=== PATIENT | male | born 1955 | race Caucasian/White ===

== ENCOUNTER → 2016-06-24 | Outpatient (CLI) | payer OTHER | LOC: RAD 18:15 | PROVIDERS: ATTEND Physician Assistant | DX: M54.16 Radiculopathy, lumbar region (principal) | CPT/HCPCS: 72148 ==

== ENCOUNTER → 2017-10-17 | Outpatient (CLI) | payer OTHER ==
--- NOTE | 2017-10-18 07:30 | RADIOLOGY REPORT (SQ) ---
EXAM DESCRIPTION: MRI LUMBAR SPINE COMBO COMPLETED DATE/TIME: 10/17/2017 7:13 pm REASON FOR STUDY: M54.16 RADICULOPATHY, LUMBAR REGION M54.16 RADICULOPATHY, LUMBAR REGION COMPARISON: MRI lumbar spine 06/24/2016, 09/22/2015 TECHNIQUE: Sagittal and Axial imaging includes T1, T1 post gadolinium, T2, STIR and gradient echo se quences. Coronal T2/HASTE imaging. CONTRAST TYPE AND DOSE: 20 mL Prohance. RENAL FUNCTION: GFR > 60. LIMITATIONS: None. FINDINGS: VISUALIZED UPPER ABDOMEN: Atrophic right kidney SEGMENTATION: No transitional anatomy. The lowest well-developed disc space is labeled L5-S1. ALIGNMENT: Anatomic. VERTEBRAE: Intact. No fractures. BONE MARROW: Normal. No marrow replacement or reactive changes. DISC SIGNAL: Diffuse decreased T2 weighted intervertebral disc signal throughout the lumbar spine POSTERIOR ELEMENTS: Post bilateral laminectomy at L2, L3, and L4. HARDWARE: None in the spine. CORD AND CONUS: Normal in size and signal intensity. Conus at the T12-L1 level. SOFT TISSUES: No aortic aneurysm seen. No bulky retroperitoneal adenopathy or mass. No paraspinal mas s or fluid. T11-12: At the upper edge of the field of view. Mild diffuse posterior disc bulging is present with out significant central or foraminal encroachment. Mild bilateral facet hypertrophy. T12-L1: Mild bilateral facet hypertrophy. No central or foraminal encroachment. L1-L2: Small central disc protrusion, mildly flattens the ventral thecal sac. Borderline central can al narrowing. Mild bilateral inferior foraminal narrowing. Findings are similar compared to 06/25/19 17. L2-L3: Post bilateral laminectomy. Central canal is decompressed. Mild bilateral foraminal narrowin g without exiting L2 nerve root impingement. L3-L4: Post bilateral laminectomy. Bulky facet arthropathy right greater than left. No central sten osis. Mild bilateral foraminal narrowing without exiting L3 nerve root impingement. L4-L5: Post bilateral laminectomy. Bulky bilateral facet hypertrophy. There is minimal residual lef t paracentral disc bulge with enhancing rim. No significant mass effect on the exiting L4 or proxima l L5 nerve roots in the lateral recess L5-S1: Bulky bilateral facet hypertrophy. No central or foraminal encroachment. SACRUM: Visualized upper sacrum intact. ENHANCEMENT: No abnormal conus or nerve root enhancement. OTHER: No other significant findings. IMPRESSION: Post diffuse lumbar dorsal decompression, no high-grade central or foraminal encroachmen t. TECHNICAL DOCUMENTATION: JOB ID: [id number] [employer]- All Rights Reserved Reading location - IP/workstation name: [facility]
== END ==
LOC: RAD 17:59
PROVIDERS: ATTEND Specialist
DX: M54.16 Radiculopathy, lumbar region (principal)
CPT/HCPCS: 72158; 82565

== ENCOUNTER 2017-10-18 22:55 | Inpatient (IN) | payer OTHER ==
--- NOTE | 2017-10-19 00:21 | ER Document Report ---
ED Skin Rash/Insect Bite/Abscs - General Chief Complaint: Insect Bite Stated Complaint: POSSIBLE SPIDER BITE Time Seen by Provider: 10/19/17 00:14 Mode of Arrival: Ambulatory Information source: Patient Notes: 62-year-old male presents to ED for red and inflamed firm painful left arm. He states that the arm has been painful for over 2 week but it got red started monday and swollen and hard area started Monday. He states he does not remember getting bit by anything. He states he was seen at urgent care today and started on 2 antibiotics. He states has taken a dose of each of them but the pain is getting worse. Patient is alert and oriented respirations regular and unlabored speaking in full sentences. TRAVEL OUTSIDE OF THE [place] IN LAST 30 DAYS: No - HPI Patient complains to provider of: Tender/swollen area Onset: Last week Onset/Duration: Gradual, Worse Quality of pain: Achy, Throbbing Severity: Moderate Pain Level: 4 Skin Character: Erythema, Swelling, Tenderness, Warm Skin Temperature: Warm Quality of rash: Painful Identify cause: No Exacerbated by: Movement Relieved by: Denies Similar symptoms previously: Yes Recently seen / treated by doctor: Yes - Related Data Allergies/Adverse Reactions: codeine [Codeine] Allergy (Verified 10/19/17 00:01) iodine [Iodine] Allergy (Verified 10/19/17 00:01) Past Medical History - General Information source: Patient - Social History Smoking Status: Never Smoker Cigarette use (# per day): No Chew tobacco use (# tins/day): No Smoking Education Provided: No Frequency of alcohol use: None Drug Abuse: None Occupation: concrete Lives with: Spouse/Significant other Family History: Reviewed & Not Pertinent Patient has suicidal ideation: No Patient has homicidal ideation: No - Past Medical History Cardiac Medical History: Reports: Hx Coronary Artery Disease, Hx Heart Attack, Hx Hypercholesterolemia, Hx Hypertension Pulmonary Medical History: Reports: None EENT Medical History: Reports: None Neurological Medical History: Reports: None Endocrine Medical History: Reports: None Renal/ Medical History: Reports: None Malignancy Medical History: Reports None GI Medical History: Reports: None Musculoskeletal Medical History: Reports Hx Arthritis, Reports Hx Musculoskeletal Deformity, Reports Hx Musculoskeletal Trauma Skin Medical History: Reports Hx Cellulitis Psychiatric Medical History: Reports: None Traumatic Medical History: Reports: None Infectious Medical History: Reports: None Past Surgical History: Reports: Hx Cardiac Surgery - triple bypass, Hx Coronary Artery Bypass Graft, Hx Orthopedic Surgery - right knee, back - Immunizations Immunizations up to date: Yes Hx Diphtheria, Pertussis, Tetanus Vaccination: Yes - 2016 Review of Systems - Review of Systems Constitutional: No symptoms reported EENT: No symptoms reported Cardiovascular: No symptoms reported Respiratory: No symptoms reported Gastrointestinal: No symptoms reported Genitourinary: No symptoms reported Male Genitourinary: No symptoms reported Musculoskeletal: No symptoms reported Skin: Change in color - Red and inflamed hard swollen area to left upper arm Hematologic/Lymphatic: No symptoms reported Neurological/Psychological: No symptoms reported Physical Exam - Vital signs Vitals: Temp Pulse Resp BP Pulse Ox 99.7 F 85 18 176/83 H 94 10/18/17 23:02 10/18/17 23:02 10/18/17 23:02 10/18/17 23:02 10/18/17 23:02 Interpretation: Normal - General General appearance: Appears well, Alert - HEENT Head: Normocephalic, Atraumatic Eyes: Normal Pupils: PERRL - Respiratory Respiratory status: No respiratory distress Chest status: Nontender Breath sounds: Normal Chest palpation: Normal - Cardiovascular Rhythm: Regular Heart sounds: Normal auscultation Murmur: No - Abdominal Inspection: Normal Distension: No distension Bowel sounds: Normal Tenderness: Nontender Organomegaly: No organomegaly - Back Back: Normal, Nontender - Extremities General upper extremity: Normal ROM General lower extremity: Normal inspection, Nontender, Normal color, Normal ROM , Normal temperature, Normal weight bearing. No: Chris's sign Arm: Tender, Other - Red inflamed swollen warm hard area to left upper arm - Neurological Neuro grossly intact: Yes Cognition: Normal Orientation: AAOx4 Ashley Coma Scale Eye Opening: Spontaneous Ashley Coma Scale Verbal: Oriented [place] Coma Scale Motor: Obeys Commands [place] Coma Scale Total: 15 Speech: Normal Motor strength normal: LUE, RUE, LLE, RLE Sensory: Normal - Psychological Associated symptoms: Normal affect, Normal mood - Skin Skin Temperature: Warm Skin Moisture: Dry Skin Color: Normal Skin irregularity: Abscess - Possible deep abscess Location of irregularity: Extremities - Left upper arm Irregularity with: Swelling, Tenderness, Warmth, Thickening, Inflammation Course - Re-evaluation Re-evalutation: 10/19/17 02:11 Discussed history physical and ultrasound with Dr. Valdes who examined the patient. She states the patient would need to be admitted for IV antibiotics. Hospitalist Dr Holland was called and history physical and ultrasound results discussed with her. Patient will be admitted to the medical floor for IV antibiotics. Patient and significant other have been informed of treatment plan. IV vancomycin has been started and Zosyn has been ordered. CBC chemistry blood cultures have been ordered and resulted. - Vital Signs Vital signs: Temp Pulse Resp BP Pulse Ox 99.7 F 77 18 160/73 H 95 10/18/17 23:02 10/18/17 23:58 10/18/17 23:58 10/18/17 23:58 10/18/17 23:58 - Laboratory Result Diagrams: 10/19/17 00:39 10/19/17 00:39 Laboratory results interpreted by me: 10/19/17 10/19/17 00:39 00:39 WBC 13.1 H Hgb 12.6 L RDW 15.8 H Absolute Neutrophils 9.3 H Sodium 145.1 H - Diagnostic Test Radiology reviewed: Image reviewed, Reports reviewed Discharge - Discharge Clinical Impression: Cellulitis, upper arm Condition: Stable Disposition: ADMITTED INPATIENT Admitting Provider: Cary Holland Unit Admitted: Medical Floor
[2017-10-19] MEDS ORDERED: VANCOMYCIN HCL INJ 1000 MG VIAL IV ONE (00:46)
[2017-10-19 00:51] LABS: ABSOLUTE EOSINOPHILS # (AUTO) 0.1 10^3/uL (0.0-0.6); ABSOLUTE LYMPHOCYTES (AUTO) 2.5 10^3/uL (0.5-4.7); ABSOLUTE MONOCYTES (AUTO) 1.2 10^3/uL (0.1-1.4); ABSOLUTE NEUT (AUTO) 9.3 10^3/uL (1.7-8.2); BASOPHILS % (AUTO) 0.4 % (0-2); EOSINOPHILS % (AUTO) 1.1 % (0-6); HEMATOCRIT 38.3 % (37.9-51.0); HEMOGLOBIN 12.6 g/dL (13.5-17.0); LYMPHOCYTES % (AUTO) 18.8 % (13-45); MEAN CORPUSCULAR HEMOGLOBIN 27.7 pg (27.0-33.4); MEAN CORPUSCULAR VOLUME 84 fl (80-97); PLATELET COUNT 313 10^3/uL (150-450); RED BLOOD COUNT 4.56 10^6/uL (4.35-5.55); RED CELL DISTRIBUTION WIDTH 15.8 % (11.5-14.0); SEGMENTED NEUTROPHILS % (AUTO) 70.7 % (42-78); TOTAL CELLS COUNTED % (AUTO) 100 %; WHITE BLOOD COUNT 13.1 10^3/uL (4.0-10.5)
[2017-10-19 00:56] LABS: ALANINE AMINOTRANSFERASE 43 U/L (21-72); ALBUMIN 4.2 g/dL (3.5-5.0); ALKALINE PHOSPHATASE 81 U/L (38-126); ANION GAP 14 (5-19); ASPARTATE AMINO TRANSFERASE 25 U/L (17-59); BILIRUBIN,DIRECT 0.4 mg/dL (0.0-0.4); BILIRUBIN,TOTAL 0.5 mg/dL (0.2-1.3); BLOOD UREA NITROGEN 14 mg/dL (7-20); CALCIUM 9.2 mg/dL (8.4-10.2); CARBON DIOXIDE 24 mmol/L (22-30); CHLORIDE 107 mmol/L (98-107); GLUCOSE 100 mg/dL (75-110); POTASSIUM 4.2 mmol/L (3.6-5.0); SODIUM 145.1 mmol/L (137-145); TOTAL PROTEIN 7.3 g/dL (6.3-8.2)
--- NOTE | 2017-10-19 01:44 | RADIOLOGY REPORT (SQ) ---
EXAM DESCRIPTION: Left upper extremity ultrasound, October 19, 2017 at 1:09 AM CLINICAL HISTORY: Red inflamed painful left arm COMPARISON: None. FINDINGS: Sonographic images of the left upper arm were submitted. There is a focal area of decreased echotexture measuring approximately 1.4 x 0.9 x 0.6 cm without increased flow could be secondary to an infectious process. Subcutaneous edema noted. IMPRESSION: Area of decreased echotexture measuring approximately 1.4 x 0.9 x 0.6 cm without increased flow could be secondary to an infectious process/small abscess. If further imaging is indicated correlation with a CT could be helpful. Subcutaneous edema noted.
[2017-10-19] MEDS ORDERED: PIPERACILLIN/TAZOBACTAM 3.375 GM VIAL IV ONE (01:58)
[2017-10-19] MEDS ORDERED: AMPICILLIN SOD/SULBACTAM 3 GM VIAL IV ONE (02:02)
[2017-10-19] MEDS ORDERED: MORPHINE SULFATE 10 MG/ML INJ IV ONE (02:09)
[2017-10-19] MEDS ORDERED: ACETAMINOPHEN 325 MG TABLET PO PRN (02:25)
[2017-10-19] MEDS ORDERED: VANCOMYCIN HCL 0 MG in DEXTROSE 5%-WATER 250 ML IV NR (02:45)
--- NOTE | 2017-10-19 02:51 | PDOC H&P ---
History of Present Illness Admission Date/PCP: 10/19/17 02:08 SASHA MCGARRY MD Patient complains of: LUE cellulitis History of Present Illness: EDNA COOLEY is a 62 year old male who comes to the emergency department complaining of left upper extremity infection. 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 Last week he noted a small spot of redness in the anterior area of the arm that has been extending, becoming warm, swelling, serum, denies secretions. The patient does not remember any insect bite but about 2 months ago he was doing some yard work and he got a stab with a knife in the upper forearm. Pain goes up to 10/10 in intensity at night, associated with fever and chills. Patient went to the urgent care today and she had a fever of 102F and dizziness. He has been prescribed 2 antibiotics that he does not remember the names. Denies nausea, vomiting, shortness of breath, he has some epigastric pain likely related with reflux disease. Denies diarrhea, constipation or urinary symptoms. He was very concerned the symptoms do not improve and decided to come to the emergency department. Past Medical History Cardiac Medical History: Reports: Coronary Artery Disease, Hyperlipidema, Hypertension Pulmonary Medical History: Reports: None EENT Medical History: Reports: None Neurological Medical History: Reports: None Endocrine Medical History: Reports: None Renal/ Medical History: Reports: None Malignancy Medical History: Reports: None GI Medical History: Reports: None, Gastroesophageal Reflux Disease Musculoskeltal Medical History: Reports: Arthritis Psychiatric Medical History: Reports: None Traumatic Medical History: Reports: None Infectious Medical History: Reports: None Past Surgical History Past Surgical History: Reports: Coronary Artery Bypass Graft - x 3 vessel, Orthopedic Surgery - right knee, back sx Social History Information Source: Patient Lives with: Spouse/Significant other Smoking Status: Never Smoker Frequency of Alcohol Use: None Drugs: None - Advance Directive Resuscitation Status: Full Code Family History Family History: Reviewed & Not Pertinent Family History: Mother at 29 years old with an intracranial hemorrhage. Father at 63 years old with a history of diabetes mellitus type 2 and myocardial infarction. One brother with hypertension and one sister with hypertension. Parental Family History Reviewed: No Children Family History Reviewed: NA Sibling(s) Family History Reviewed.: NA Medication/Allergy Home Medications: Metoprolol Succinate [Toprol XL 100 mg Tablet] 100 mg PO DAILY 11/05/14 Cholesterol Panel 11/06/14 Methylprednisolone [Medrol Dosepack (4 mg/Tab) 21 Tab/Dosepak] 4 mg PO ASDIR PRN #21 tab.ds.pk 11/06/14 Allergies/Adverse Reactions: codeine [Codeine] Allergy (Verified 10/19/17 00:01) iodine [Iodine] Allergy (Verified 10/19/17 00:01) Review of Systems Review of Systems: As outlined in the HPI, all others negative Physical Exam Vital Signs: Temp Pulse Resp BP Pulse Ox 99.3 F 75 16 146/68 H 94 10/19/17 02:30 10/19/17 02:30 10/19/17 02:30 10/19/17 02:30 10/19/17 02:30 Additional comments: General appearance: Well-developed, obese, alert and cooperative, and appears to be in no acute distress Head: Normocephalic Eyes: PEERL, EOMI, vision is grossly intact. Ears: External auditory canal and tympanic membranes clear, hearing grossly intact. Nose: No nasal discharge. Throat: Oral cavity and pharynx normal. No inflammation, swelling, exudate or lesions. Neck: Neck supple, nontender without lymphadenopathy, masses or thyromegaly. Cardiac: Normal S1 and S2. No S3, S4 or murmurs. Rhythm is regular. There is no peripheral edema, cyanosis or pallor. Extremities are warm and well perfused. Capillary refill is less than 2 seconds. No carotid bruits. Lungs: Clear to auscultation and percussion without rales, rhonchi, wheezing or diminished breath sounds. Not using accessory muscles. Abdomen: Positive bowel sounds. Soft. Nondistended, nontender. No guarding or rebound. No masses. No hepatosplenomegaly Extremities: Left upper extremity: Anterior forearm with redness, erythema, swelling, tenderness to palpation, do not evidentiate drainage. Approximately 5 cm diameter. Neurological: Cranial nerves II through XII grossly intact. Strength and sensation symmetric and intact throughout. Reflexes 2+ throughout. Skin: Left upper extremity as outlined above, warm and dry. Psychiatric: The mental examination revealed the patient was oriented to person , place, and time. The patient was able to demonstrate good judgment on recent , without hallucinations, abnormal affect or abnormal behaviors. Results Laboratory Results: 10/19/17 10/19/17 00:39 00:39 WBC 13.1 H Hgb 12.6 L Hct 38.3 Plt Count 313 Absolute Neutrophils 9.3 H Sodium 145.1 H Potassium 4.2 Chloride 107 Carbon Dioxide 24 Anion Gap 14 BUN 14 Creatinine 0.81 Est GFR (Non-Af Amer) > 60 Glucose 100 Calcium 9.2 Total Bilirubin 0.5 AST 25 ALT 43 Alkaline Phosphatase 81 Albumin 4.2 Impressions: Extremity Ultrasound 10/19/17 00:14 IMPRESSION: Area of decreased echotexture measuring approximately 1.4 x 0.9 x 0.6 cm without increased flow could be secondary to an infectious process/small abscess. If further imaging is indicated correlation with a CT could be helpful. Subcutaneous edema noted. Assessment & Plan - Diagnosis (1) Cellulitis, upper arm Is this a current diagnosis for this admission?: Yes Plan: Patient comes with left upper arm cellulitis with a small abscess. Will place the patient on IV vancomycin and IV Unasyn. General surgery consultation placed for possible I&D, please send wound cultures if possible. Cultures ordered, please follow sensitivity. Pain medication order. Left upper extremity ultrasound confirms a small abscess. Leukocytosis with white blood cell 13.1, patient is not septic. Will repeat CBC in the morning. (2) Hypertension Is this a current diagnosis for this admission?: Yes Plan: Blood pressure uncontrolled in the emergency department, 160/73, will resume his home antihypertensive medications. (3) S/P CABG x 3 Is this a current diagnosis for this admission?: Yes Plan: Patient denies having any MRI in the past, please resume home medications. No med rec done yet.
[2017-10-19] MEDS ORDERED: AMPICILLIN SOD/SULBACTAM 3 GM VIAL IV PRN (02:54)
[2017-10-19] MEDS: AMPICILLIN SODIUM/SULBACTAM NA 3 GM in NORMAL SALINE 100 ML IV SCH ×4 (03:29→21:42)
[2017-10-19] MEDS: HEPARIN SOD (PORCINE) 5,000 UNIT/ML 1 ML SYRINGE SUBCUT SCH ×3 (05:41→21:51)
[2017-10-19] MEDS ORDERED: DEXTROSE 5%-LACTATED RINGERS 1,000 ML IV PRN (09:21)
--- NOTE | 2017-10-19 09:40 | PDOC CONSULTATION ---
Consultation Consult Date: 10/19/17 Attending physician:: [facility] TAM Consult reason:: Abscess left arm History of Present Illness Admission Date/PCP: 10/19/17 02:08 SASHA MCGARRY MD History of Present Illness: EDNA COOLEY is a 62 year old male Presents emergency department complaining of a two-week history of left upper arm swelling, redness, pain, decreased range of motion. He denies history of trauma to the arm recently although 2 months ago he inadvertently stabbed himself in the left forearm with a knife while opening of feedback. That wound healed up. Patient has had low-grade fever. He is right-hand dominant. He was seen in the emergency department was found to have cellulitis, leukocytosis , and ultrasonographic findings consistent with evolving abscess. He was admitted to the hospitalist service started on IV antibiotics, and surgery was consulted. Past Medical History Cardiac Medical History: Reports: Coronary Artery Disease, Myocardial Infarction , Hyperlipidema, Hypertension Pulmonary Medical History: Reports: None EENT Medical History: Reports: None Neurological Medical History: Reports: None Endocrine Medical History: Reports: None Renal/ Medical History: Reports: None Malignancy Medical History: Reports: None GI Medical History: Reports: None, Gastroesophageal Reflux Disease Musculoskeltal Medical History: Reports: Arthritis Psychiatric Medical History: Reports: None Traumatic Medical History: Reports: None Infectious Medical History: Reports: None Past Surgical History Past Surgical History: Reports: Coronary Artery Bypass Graft - x 3 vessel, Orthopedic Surgery - right knee, back sx Social History Lives with: Spouse/Significant other Smoking Status: Never Smoker Frequency of Alcohol Use: None Hx Recreational Drug Use: No Drugs: None Hx Prescription Drug Abuse: No - Advance Directive Resuscitation Status: Full Code Family History Family History: Reviewed & Not Pertinent Parental Family History Reviewed: Yes Children Family History Reviewed: Yes Sibling(s) Family History Reviewed.: Yes Medication/Allergy Home Medications: Allopurinol [Zyloprim 100 mg Tablet] 200 mg PO DAILY 10/19/17 Atorvastatin Calcium [Lipitor 40 mg Tablet] 40 mg PO DAILY 10/19/17 Lisinopril [Prinivil 40 mg Tablet] 40 mg PO DAILY 10/19/17 Metoprolol Succinate [Toprol XL 200 mg Tablet] 200 mg PO DAILY 10/19/17 Omeprazole 40 mg PO DAILY 10/19/17 Tadalafil [Cialis] 20 mg PO ASDIR PRN 10/19/17 Allergies/Adverse Reactions: codeine [Codeine] Allergy (Verified 10/19/17 00:01) iodine [Iodine] Allergy (Verified 10/19/17 00:01) Review of Systems Constitutional: PRESENT: as per HPI Ears: ABSENT: hearing changes Cardiovascular: ABSENT: chest pain, dyspnea on exertion, edema, orthropnea, palpitations Respiratory: ABSENT: cough, hemoptysis Gastrointestinal: ABSENT: abdominal pain, constipation, diarrhea, hematemesis, hematochezia, nausea, vomiting Genitourinary: ABSENT: dysuria, hematuria Physical Exam Vital Signs: Temp Pulse Resp BP Pulse Ox 98.8 F 71 16 142/72 H 94 10/19/17 08:07 10/19/17 08:07 10/19/17 08:07 10/19/17 08:07 10/19/17 08:07 Intake & Output 10/18/17 10/19/17 10/20/17 06:59 06:59 06:59 Intake Total 300 Balance 300 Weight 112.4 kg General appearance: PRESENT: no acute distress Head exam: PRESENT: normocephalic Eye exam: PRESENT: EOMI Mouth exam: PRESENT: dry mucosa Respiratory exam: PRESENT: clear to auscultation lino Cardiovascular exam: PRESENT: RRR Pulses: PRESENT: normal carotid pulses, normal radial pulses GI/Abdominal exam: PRESENT: soft Rectal exam: PRESENT: deferred Musculoskeletal exam: PRESENT: ambulatory, other - Left upper extremity examined ; the left upper arm over the biceps muscle is a cellulitic area that is very tender, nearly consolidated to a firm mass overlying skin developing early pustules Neurological exam: PRESENT: alert, oriented to person, oriented to place, oriented to time, oriented to situation Psychiatric exam: PRESENT: appropriate affect Results Impressions: Extremity Ultrasound 10/19/17 00:14 IMPRESSION: Area of decreased echotexture measuring approximately 1.4 x 0.9 x 0.6 cm without increased flow could be secondary to an infectious process/small abscess. If further imaging is indicated correlation with a CT could be helpful. Subcutaneous edema noted. Assessment & Plan - Diagnosis (1) Cellulitis, upper arm Is this a current diagnosis for this admission?: Yes Plan: Impression: Cellulitis with evolving abscess left upper extremity, clinically improved; I reviewed the ultrasonographic findings, and based on my examination , I believe the patient's arm needs to be operatively drained to facilitate healing of this soft tissue infection Recommendations: 1. Keep n.p.o., IV fluids, arm elevation. 2. Take patient to the operating room for debridement, packing, possible placement. This was explained to the patient. I believe understands and agrees to proceed.
[2017-10-19] MEDS: OXYCODONE-ACETAMINOPHEN 5-325 MG TABLET PO PRN ×2 (09:57→18:27)
[2017-10-19] MEDS: VANCOMYCIN HCL 1,500 MG in DEXTROSE 5%-WATER 250 ML IV SCH ×2 (13:02→23:42)
[2017-10-19] MEDS ORDERED: BUPIVACAINE HCL 0.25 % INJ/PF (2.5 MG/1 ML) 30 ML VIAL ONE (14:25)
[2017-10-19] MEDS ORDERED: PROPOFOL INJ 200 MG/20 ML VIAL IV ONE (14:38)
[2017-10-19] MEDS ORDERED: MIDAZOLAM 2 MG/2 ML INJ ONE (14:38)
[2017-10-19] MEDS ORDERED: FENTANYL CITRATE INJ/PF 100 MCG/2 ML AMPUL ONE (14:38)
[2017-10-19] MEDS ORDERED: FENTANYL CITRATE INJ/PF 100 MCG/2 ML AMPUL IV PRN ×3 (15:16)
[2017-10-19] MEDS ORDERED: ONDANSETRON HCL INJ/PF 4 MG/2 ML SDV IV PRN (15:16)
[2017-10-19] MEDS ORDERED: PROMETHAZINE HCL INJ 25 MG/1 ML VIAL IV PRN ×2 (15:16)
[2017-10-19] MEDS ORDERED: MEPERIDINE HCL/PF INJ 25 MG/1 ML DISP.SYRIN IV PRN (15:16)
[2017-10-19] MEDS ORDERED: DIPHENHYDRAMINE HCL 50 MG/ML VIAL IV PRN (15:16)
--- NOTE | 2017-10-19 15:27 | Operative Report ---
Operative Report DATE OF SURGERY: 10/19/17 PREOPERATIVE DIAGNOSIS: Left upper extremity soft tissue infection POSTOPERATIVE DIAGNOSIS: Same with fasciitis of the biceps brachii OPERATION: Left upper extremity excisional debridement of skin subcutaneous tissue, breakup of deep soft tissue and fascial loculations SURGEON: BERNICE BECERRA ANESTHESIA: GA - Via LMA TISSUE REMOVED OR ALTERED: Fluid subcutaneous tissue COMPLICATIONS: None ESTIMATED BLOOD LOSS: Scant INTRAOPERATIVE FINDINGS: See below PROCEDURE: The patient was taken to the main operating room where LMA general anesthesia was induced. Left arm was exposed, prepped and draped sterile fashion. Surgical plan surgical timeout were conducted The findings are significant for an erythematous edematous tender and swollen left upper extremity at the level of the midportion of the biceps brachii musculature. Approximately a centimeter long vertically oriented incision was made over the point of maximum tissue distention. We immediately got into pus, then watery fluid. A small ellipse of skin was excised with a #10 blade including the skin and subcutaneous tissue. Subcutaneous nodular infected fat was broken up with a hemostat. The dissection extended down to but not beyond the biceps brachii fascia. The muscle appeared to be spared tissue necrosis. The fluid tracted above the fascia consistent with fasciitis. All pockets were broken up with index finger which included pocket cephalad, caudad, and medially. Wound irrigated with 2 L of saline, packed open with a portion of Kerlix packing. 4 x 4's and Kerlix dressing applied. Patient taught procedure well, LMA removed , the patient taken to recovery in stable condition. Recommendations: 1. Left arm elevation, IV antibiotics, IV fluids 2. Surgicalist tomorrow will remove packing and assessment.
[2017-10-19] MEDS: FENTANYL CITRATE INJ/PF 100 MCG/2 ML AMPUL ONE ×2 (15:35→15:45)
--- NOTE | 2017-10-19 17:02 | PDOC PROGRESS REPORT ---
Subjective Progress Note for:: 10/19/17 Subjective:: The patient states that he is having a lot of pain from his arm. No other new complaints. Reason For Visit: LUE CELLULITIS Physical Exam Vital Signs: Temp Pulse Resp BP Pulse Ox 98.4 F 64 16 133/68 H 95 10/19/17 13:23 10/19/17 13:23 10/19/17 13:23 10/19/17 13:23 10/19/17 13:23 Intake & Output 10/18/17 10/19/17 10/20/17 06:59 06:59 06:59 Intake Total 300 1975 Output Total 1005 Balance 300 970 Weight 112.4 kg General appearance: PRESENT: no acute distress, well-developed, well-nourished Respiratory exam: PRESENT: other - No increased work of breathing.. ABSENT: rales, rhonchi, wheezes Cardiovascular exam: PRESENT: RRR. ABSENT: gallop, rubs, systolic murmur GI/Abdominal exam: PRESENT: normal bowel sounds, soft. ABSENT: distended, hernia, mass, organolmegaly, tenderness Extremities exam: PRESENT: other - Left upper extremity has marked erythema and swelling. It is warm and tender to touch. Fluctuant.. ABSENT: clubbing, tenderness, +1 edema Neurological exam: PRESENT: alert, awake, oriented to person, oriented to place , oriented to time, CN II-XII grossly intact. ABSENT: motor sensory deficit Psychiatric exam: PRESENT: appropriate affect, normal mood Skin exam: PRESENT: dry, intact, warm, other - Erythema, warmth, tenderness, and swelling to left upper extremity. Results Laboratory Results: 10/19/17 10/19/17 00:39 00:39 WBC 13.1 H Hgb 12.6 L Hct 38.3 RDW 15.8 H Plt Count 313 Absolute Neutrophils 9.3 H Sodium 145.1 H Potassium 4.2 Chloride 107 Carbon Dioxide 24 BUN 14 Creatinine 0.81 Calcium 9.2 Total Bilirubin 0.5 Direct Bilirubin 0.4 AST 25 ALT 43 Alkaline Phosphatase 81 Total Protein 7.3 Albumin 4.2 Impressions: Extremity Ultrasound 10/19/17 00:14 IMPRESSION: Area of decreased echotexture measuring approximately 1.4 x 0.9 x 0.6 cm without increased flow could be secondary to an infectious process/small abscess. If further imaging is indicated correlation with a CT could be helpful. Subcutaneous edema noted. Assessment & Plan - Diagnosis (1) GERD (gastroesophageal reflux disease) Is this a current diagnosis for this admission?: Yes Plan: PPI (2) Cellulitis, upper arm Is this a current diagnosis for this admission?: Yes Plan: I have discussed the patient with Dr. Hoyt this morning. He plans to take the patient to the OR to filet and debride the upper extremity. (3) Hypertension Qualifiers: Hypertension type: essential hypertension Qualified Code(s): I10 - Essential (primary) hypertension Is this a current diagnosis for this admission?: Yes Plan: Continue home medications as possible. (4) S/P CABG x 3 Is this a current diagnosis for this admission?: Yes Plan: Continue home medications as possible. - Time Time Spent with patient: 35 or more minutes Medications reviewed and adjusted accordingly: Yes Anticipated discharge: Home
[2017-10-19] MEDS: ATORVASTATIN CALCIUM 40 MG TABLET PO SCH (18:24)
[2017-10-19] MEDS: ALLOPURINOL 100 MG TABLET PO SCH (18:24)
[2017-10-19] MEDS ORDERED: KETOROLAC TROMETHAMINE 10 MG TABLET PO PRN (20:33)
--- NOTE | 2017-10-19 23:12 | EKG REPORT ---
SEVERITY:- NORMAL ECG - SINUS RHYTHM : Confirmed by: Carolyn Hernández 19-Oct-2017 23:11:24
[2017-10-19] MEDS: KETOROLAC TROMETHAMINE INJ/PF 30 MG/1 ML SDV IV PRN (23:43)
[2017-10-20] MEDS: AMPICILLIN SODIUM/SULBACTAM NA 3 GM in NORMAL SALINE 100 ML IV SCH ×4 (03:43→21:13)
[2017-10-20 04:37] LABS: HEMATOCRIT 37.1 % (37.9-51.0); HEMOGLOBIN 12.2 g/dL (13.5-17.0); MEAN CORPUSCULAR HEMOGLOBIN 27.7 pg (27.0-33.4); MEAN CORPUSCULAR HGB CONC 32.9 g/dL (32.0-36.0); MEAN CORPUSCULAR VOLUME 84 fl (80-97); PLATELET COUNT 288 10^3/uL (150-450); RED BLOOD COUNT 4.41 10^6/uL (4.35-5.55); RED CELL DISTRIBUTION WIDTH 15.5 % (11.5-14.0); WHITE BLOOD COUNT 11.2 10^3/uL (4.0-10.5)
[2017-10-20 04:53] LABS: INTERNATIONAL RATION (INR) 0.99; PROTHROMBIN TIME 13.5 SEC (11.4-15.4)
[2017-10-20 04:54] LABS: PARTIAL THROMBOPLASTIN TIME 31.8 SEC (23.5-35.8)
[2017-10-20 04:55] LABS: ANION GAP 11 (5-19); BLOOD UREA NITROGEN 18 mg/dL (7-20); CARBON DIOXIDE 25 mmol/L (22-30); CHLORIDE 105 mmol/L (98-107); GLUCOSE 126 mg/dL (75-110); POTASSIUM 4.3 mmol/L (3.6-5.0); SODIUM 141.3 mmol/L (137-145)
[2017-10-20] MEDS: HEPARIN SOD (PORCINE) 5,000 UNIT/ML 1 ML SYRINGE SUBCUT SCH ×3 (05:32→21:10)
[2017-10-20] MEDS: LANSOPRAZOLE 30 MG TAB.RAP.DR PO SCH (05:32)
[2017-10-20] MEDS: OXYCODONE-ACETAMINOPHEN 5-325 MG TABLET PO PRN ×3 (05:33→21:11)
[2017-10-20] MEDS ORDERED: (PENDING PHARMACY ID) (Metoprolol Succinate [Toprol Xl 200 Mg Tablet] 200 MG) PO SCH (10:00)
[2017-10-20] MEDS: METOPROLOL SUCCINATE 50 MG TAB.SR.24H PO SCH (10:30)
[2017-10-20] MEDS: VANCOMYCIN HCL 1,500 MG in DEXTROSE 5%-WATER 250 ML IV SCH (12:51)
[2017-10-20 13:26] LABS: VANCOMYCIN,TROUGH 10.7 ug/mL (5.0-20.0)
[2017-10-20] MEDS: ALLOPURINOL 100 MG TABLET PO SCH (18:14)
[2017-10-20] MEDS: ATORVASTATIN CALCIUM 40 MG TABLET PO SCH (18:14)
[2017-10-20] MEDS: KETOROLAC TROMETHAMINE INJ/PF 30 MG/1 ML SDV IV PRN (18:18)
--- NOTE | 2017-10-20 18:41 | PDOC PROGRESS REPORT ---
Subjective Progress Note for:: 10/20/17 Subjective:: The patient is resting comfortably. No new complaints. Reason For Visit: LUE CELLULITIS Physical Exam Vital Signs: Temp Pulse Resp BP Pulse Ox 99.5 F 71 16 146/65 H 96 10/20/17 16:28 10/20/17 16:28 10/20/17 16:28 10/20/17 16:28 10/20/17 16:28 Intake & Output 10/19/17 10/20/17 10/21/17 06:59 06:59 06:59 Intake Total 300 3814 1620 Output Total 1005 Balance 300 2809 1620 Weight 112.4 kg 117.6 kg General appearance: PRESENT: morbidly obese Respiratory exam: PRESENT: other - No increased work of breathing. No wheezes, rales, or rhonchi. No tactile fremitus. Cardiovascular exam: PRESENT: RRR, other - No lateral PMI. No thrills.. ABSENT : gallop, rubs, systolic murmur Pulses: PRESENT: normal femoral pulses, normal dorsalis pedis pul, other GI/Abdominal exam: PRESENT: normal bowel sounds, soft. ABSENT: distended, hernia, mass, organolmegaly Extremities exam: PRESENT: other - Left upper extremity is bandanged.. ABSENT: clubbing, +1 edema Neurological exam: PRESENT: alert, awake, oriented to person, oriented to place , oriented to time, oriented to situation Psychiatric exam: PRESENT: appropriate affect, normal mood Skin exam: PRESENT: dry, intact, warm Results Laboratory Results: 10/20/17 04:15 10/20/17 04:15 10/20/17 10/20/17 04:15 04:15 WBC 11.2 H RBC 4.41 Hgb 12.2 L Hct 37.1 L MCV 84 MCH 27.7 MCHC 32.9 RDW 15.5 H Plt Count 288 Sodium 141.3 Potassium 4.3 Chloride 105 Carbon Dioxide 25 Anion Gap 11 BUN 18 Creatinine 0.90 Est GFR ( Amer) > 60 Est GFR (Non-Af Amer) > 60 Glucose 126 H Calcium 9.0 Impressions: Extremity Ultrasound 10/19/17 00:14 IMPRESSION: Area of decreased echotexture measuring approximately 1.4 x 0.9 x 0.6 cm without increased flow could be secondary to an infectious process/small abscess. If further imaging is indicated correlation with a CT could be helpful. Subcutaneous edema noted. Assessment & Plan - Diagnosis (1) GERD (gastroesophageal reflux disease) Is this a current diagnosis for this admission?: Yes (2) Cellulitis, upper arm Is this a current diagnosis for this admission?: Yes (3) Hypertension Qualifiers: Hypertension type: essential hypertension Qualified Code(s): I10 - Essential (primary) hypertension Is this a current diagnosis for this admission?: Yes (4) S/P CABG x 3 Is this a current diagnosis for this admission?: Yes
[2017-10-21] MEDS: AMPICILLIN SODIUM/SULBACTAM NA 3 GM in NORMAL SALINE 100 ML IV SCH ×2 (02:40→08:37)
[2017-10-21] MEDS: VANCOMYCIN HCL 1,500 MG in DEXTROSE 5%-WATER 250 ML IV SCH ×2 (02:41→12:49)
[2017-10-21] MEDS: KETOROLAC TROMETHAMINE INJ/PF 30 MG/1 ML SDV IV PRN ×2 (03:35→10:30)
[2017-10-21] MEDS: HEPARIN SOD (PORCINE) 5,000 UNIT/ML 1 ML SYRINGE SUBCUT SCH ×2 (06:54→15:06)
[2017-10-21] MEDS: LANSOPRAZOLE 30 MG TAB.RAP.DR PO SCH (06:54)
[2017-10-21] MEDS: OXYCODONE-ACETAMINOPHEN 5-325 MG TABLET PO PRN ×2 (08:37→15:07)
[2017-10-21] MEDS: METOPROLOL SUCCINATE 50 MG TAB.SR.24H PO SCH (10:25)
[2017-10-21 16:29] VITALS: BP 133/68
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
== END 2017-10-21 16:51 | disposition home health service (06) | DRG 572 ==
LOC: ER 22:55 → EH 10-19 02:08 → 5 10-19 02:52
PROVIDERS: ADMIT Internal Medicine; ATTEND Internal Medicine
PROC: 0JBF0ZZ Excision of Left Upper Arm Subcutaneous Tissue and Fascia, Open Approach (ICD-10-PCS; principal; 2017-10-19 15:15)
DX: L03.114 Cellulitis of left upper limb (principal); M72.8 Other fibroblastic disorders; I10 Essential (primary) hypertension; K21.9 Gastro-esophageal reflux disease without esophagitis; I25.10 Atherosclerotic heart disease of native coronary artery without angina pectoris; E78.00 Pure hypercholesterolemia, unspecified; M19.90 Unspecified osteoarthritis, unspecified site; B95.61 Methicillin susceptible Staphylococcus aureus infection as the cause of diseases classified elsewhere; I25.2 Old myocardial infarction; Z95.1 Presence of aortocoronary bypass graft
CPT/HCPCS: 36415; 400; 76881; 80048; 80053; 80202; 85025; 85027; 85610; 85730; 87040; 87070; 87075; 87077; 87186; 87205; 93005; 93010; 94660; 96365; 99285; A6266; J0295; J1644; J1885; J2250; J2270; J2543; J2704; J3010; J3370; J3490; J7060